=== PATIENT | female | born 2000 | race Caucasian/White ===

== ENCOUNTER 2020-05-24 07:08 | Emergency (ER) | payer BC ==
[~2020-05-24] VITALS: Ht 160 cm; Wt 61.3 kg
[2020-05-24] MEDS ORDERED: PROCHLORPERAZINE 10 MG/2 ML VIAL. IV ONE (07:45)
[2020-05-24] MEDS ORDERED: DEXAMETHASONE SOD PHOS 20 MG/5 ML VIAL. IV ONE (07:45)
[2020-05-24] MEDS ORDERED: ACETAMINOPHEN 500 MG TABLET PO ONE (07:45)
[2020-05-24] MEDS ORDERED: diphenhydrAMINE 50 MG/ML VIAL IVP ONE (07:45)
[2020-05-24] MEDS ORDERED: IV NORMAL SALINE 1000ML BAG 1,000 ML IV ONE (07:45)
--- NOTE | 2020-05-24 08:25 | PHYS DOC ---
Past Medical History Past Medical History: Migraines Past Surgical History: Tonsillectomy, Other Additional Past Surgical Histo: T&A Smoking Status: Light Tobacco Smoker Alcohol Use: None General Adult EDM: Chief Complaint: HEADACHE HPI: HPI: 20-year-old female past medical history significant for migraine headaches, presents to the ED with complaints of sudden onset "digging elbow pain" frontal headache, worse over left anglican, that started yesterday around 10am, now with nausea and nbnb vomiting that started at 3am. Patient follows with Dr. Orellana at [facility] and has been on rizatriptan prn for over a year. Took rizatriptan this am with no relief. No relief with tramadol yesterday. Is on amitriptyline and Emgality daily. States she has had headaches for up to 2 weeks and her headaches have worsened over the past 2 years. Does report this is the worst headache she has ever had. Biological mother at bedside reports her brother/patient's uncle, was recently hospitalized for 2 "atraumatic bleeding strokes," they could not find where the bleeding was coming from. Patient's grandmother has had a AAA repair. Patient denies any hookah smoking, caffeine/cocaine/amphetamine/IVDU use, or recent alcohol use. No history of head trauma. Denies any associated fever, nuchal rigidity, blurry vision, neck pain, weakness/sensory deficits/radiculopathy. No known family history of polycystic kidney disease, Marfan's syndrome, or Annia-Danlos. No medical h/o bleeding problems, anemia or blood transfusions. Patient came home from college on Monday and has been staying at her mom's house. Mother does not have any headache. Review of Systems: Review of Systems: Constitutional: Denies fever or chills. [] Eyes: Denies change in visual acuity, blurry vision or eye discharge HENT: Denies nasal congestion or sore throat. [] Respiratory: Denies cough or shortness of breath. [] Cardiovascular: Denies chest pain or edema. [] GI: Denies abdominal pain, bloody stools or diarrhea. [] : Denies dysuria. [] Musculoskeletal: Denies back pain or joint pain. [] Integument: Denies rash. [] Neurologic: Denies neck stiffness, focal weakness or sensory changes. [] Endocrine: Denies polyuria or polydipsia. [] Lymphatic: Denies swollen glands. [] Psychiatric: Denies depression or anxiety. [] Heart Score: Risk Factors: Risk Factors: DM, Current or recent (<one month) smoker, HTN, HLP, family history of CAD, obesity. Risk Scores: Score 0 - 3: 2.5% MACE over next 6 weeks - Discharge Home Score 4 - 6: 20.3% MACE over next 6 weeks - Admit for Clinical Observation Score 7 - 10: 72.7% MACE over next 6 weeks - Early Invasive Strategies Current Medications: Current Medications Medications (Trade) Dose Ordered Sig/Natalia Start Time Stop Time Status Last Admin Dose Admin Acetaminophen (Tylenol) 1,000 mg 1X ONCE 05/24/20 07:45 05/24/20 07:46 DC Dexamethasone Sodium Phosphate (Decadron) 10 mg 1X ONCE 05/24/20 07:45 05/24/20 07:46 DC Diphenhydramine HCl (Benadryl) 25 mg 1X ONCE 05/24/20 07:45 05/24/20 07:46 DC Prochlorperazine Edisylate (Compazine) 10 mg 1X ONCE 05/24/20 07:45 05/24/20 07:46 DC Sodium Chloride 1,000 ml @ 1,000 mls/hr 1X ONCE 05/24/20 07:45 05/24/20 08:44 Allergies: Allergies: Allergies Coded Allergies Type Severity Reaction Last Updated Verified Penicillins Allergy Unknown 05/24/20 Yes Physical Exam: PE: Constitutional: Well developed, well nourished, no acute distress, non-toxic appearance. [] HENT: Normocephalic, atraumatic, bilateral external ears normal, oropharynx moist, no hemotympanum, solomon red lips Eyes: PERRLA, EOMI, conjunctiva normal, no discharge. [] Neck: Normal range of motion, no tenderness, supple, no stridor. [] Cardiovascular: S1/2 present, regular rhythm Lungs & Thorax: Speaking in full sentences, bilateral equal chest rise, no tachypnea or increased work of breathing Abdomen: soft, no tenderness, active vomiting Skin: Warm, dry, no erythema, no rash. [] Back: No tenderness, no CVA tenderness. [] Extremities: No tenderness, no cyanosis, no clubbing, ROM intact, no edema. [] Neurologic: Alert and oriented X 3, normal motor function, normal sensory function, no focal deficits noted. [] Psychologic: Affect normal, judgement normal, mood normal. [] Current Patient Data: Labs: Laboratory Tests Test 05/24/20 07:26 POC Urine HCG, Qualitative Hcg negative (Negative) Vital Signs: Vital Signs Date Time Temp Pulse Resp B/P (MAP) Pulse Ox O2 Delivery O2 Flow Rate FiO2 05/24/20 07:20 97.8 86 16 114/72 (86) 99 Room Air 97.8 EKG: EKG: [] Radiology/Procedures: Radiology/Procedures: []IMAGING REPORT Signed PATIENT: HARLEEN MAR ACCOUNT: [id number] : 2000 LOCATION: ER AGE: 20 SEX: F EXAM STATUS: REG ER ORD. PHYSICIAN: ERNESTINE DIAL DO REASON: headache PROCEDURE: CT HEAD WO CONTRAST EXAM: CTA HEAD AND NECK W/WO CONTRAST, CT HEAD/BRAIN WO DATE: 05/24/2020 9:43 AM INDICATION: Headache, migraines x 2 weeks. TECHNIQUE: 5 mm axial tomographic images were obtained through the head before contrast. CTA angiogram of the head and neck was obtained after IV bolus administration of 75 cc of Omnipaque 300. The images were sent to workstation and multiplanar reconstructions were obtained. Multiplanar reconstruction images to include MIP and 3-D reconstruction images are submitted. One or more of the following dose reduction techniques were utilized: Automated exposure control (AEC), Adjustment of mA and/or kV according to patient size, Use of iterative reconstruction technique such as ASiR, CT scan done according to ALARA and image gently/image wisely COMPARISON: None. FINDINGS: Noncontrast CT: The brain parenchyma is normal in attenuation. No intra- or extra-axial mass or fluid collection. No hyperdense intracranial hemorrhage. The ventricles are normal in size and configuration without midline shift. There is normal barlow-white matter differentiation. The subarachnoid cisterns are patent. Right maxillary sinus mucus retention cyst. The mastoid air cells are clear. The visualized portions of the orbits are normal. No aggressive osseous lesion or fracture. CTA Head: The visualized distal internal carotid arteries, anterior and middle cerebral arteries are patent and normal caliber. The distal vertebral arteries, basilar artery, and posterior cerebral arteries are patent and normal caliber. No aneurysm or arteriovenous malformation is seen. CTA Neck: Right carotid: The right common carotid artery is patent and normal caliber. The carotid bifurcation is normal. No stenosis of the right internal carotid artery per NASCET criteria. The right external carotid artery is patent. Left carotid: The left common carotid artery is patent and normal caliber. The carotid bifurcation is normal. No stenosis of the left internal carotid artery per NASCET criteria. The left external carotid artery is patent. Right vertebral: The right vertebral artery is patent and normal caliber. Left vertebral: The left vertebral artery is patent and normal caliber. The visualized portions of the aortic arch are normal. The origins of the brachiocephalic and subclavian arteries are normal. No cervical lymphadenopathy. The thyroid gland is normal. The parotid and submandibular glands are normal. The visualized aerodigestive tract is unremarkable. The cervical spine is normal. The visualized portions of the lungs are clear. IMPRESSION: 1. No acute intracranial process by noncontrast head CT. 2. No aneurysm. No intracranial stenosis or occlusion. 3. No stenosis of the cervical carotid or vertebral arteries. PQRS Compliance Statement - Stenosis calculations for CT, MR and conventional angiography are based upon measurement of the distal ICA diameter in accordance with the NASCET methodology. Electronically signed by: Luci Yarbrough MD (05/24/2020 10:01 AM) [id number] DICTATED and SIGNED BY: LUCI YARBROUGH MD DATE: 05/24/20 [id number] 0 Course & Med Decision Making: Course & Med Decision Making Pertinent Labs and Imaging studies reviewed. (See chart for details) On re-evaluation, pts' sxs completely resolved with migraine cocktail and pt requested to be discharged home (long ed staff due to ed volume). Given patient's family history of AAA and hemorrhagic strokes, CTA was performed to evaluate for AVM -mother and pt educated about this. Will prescribe Zofran ODT. Will discharge home with strict ED return precautions were given for neurologic deficits, headache, blurry vision, seizures, fever, or neck stiffness. Encouraged urgent outpatient follow-up with PMD and neurology-Dr. Orellana. Life- threatening processes were considered but are low suspicion at this time, given history, physical exam and ED workup. Pt was educated on all prescription medications and adverse effects. All patient's questions were answered and pt was stable at time of discharge. Life/limb-threatening differential includes but is not limited to, meningitis, encephalitis, intracranial hemorrhage, obstructive hydrocephaly, CVA, carbon monoxide poisoning, cerebral or cavernous venous thrombosis, hypertensive emergency, preeclampsia, giant cell arteritis, glaucoma, carotid or vertebral artery dissection, superior vena cava syndrome, infection, optic neuritis, or space-occupying lesions. I spoken with the patient and her caregivers. I explained the patient's condition, diagnoses and treatment plan based on the information available to me at this time. I have answered the patient and her caregiver's questions and addressed any concerns. The patient and her caregivers have a good understanding of patient's diagnosis, condition and treatment plan as can be expected at this point. Vital signs have been stable. Patient's condition is stable and appropriate for discharge from the emergency department. Patient will pursue further outpatient evaluation with primary care physician or other designated or consulting physician as outlined in the discharge instructions. The patient and/or caregivers are agreeable to this plan of care and follow-up instructions have been explained in detail. The patient and/or caregivers have received these instructions in written form and have expressed an understanding of the discharge instructions. The patient and/or caregivers are aware that any significant change of condition or worsening of symptoms should prompt immediate return to this or the closest emergency department or call to 911. Ismael Disclaimer: Ismael Disclaimer: This electronic medical record was generated, in whole or in part, using a voice recognition dictation system. Departure Departure Impression: Primary Impression: Migraine headache Additional Impression: Nausea & vomiting Disposition: 01 DC HOME SELF CARE/HOMELESS Condition: STABLE Referrals: UNKNOWN PCP NAME (PCP) FOLLOW UP WITH FAMILY MEDICINE: Family Medicine Address: [address], [facility] [address] [place] [address] Patient Instructions: Migraine Headache, Nausea and Vomiting Additional Instructions: FOLLOW UP WITH NEUROLOGY: in 1-2 weeks for re-eval [facility] Address: [address] [facility] [place] [address] EMERGENCY DEPARTMENT GENERAL DISCHARGE INSTRUCTIONS Thank you for coming to [facility] Emergency Department (ED) today and trusting us with you care. We trust that you had a positive experience in our Emergency Department. If you wish to speak to the department management, you may call the Director at [phone]. YOUR FOLLOW UP INSTRUCTIONS ARE FOLLOWS: 1. Do you have a private Doctor? If you do not have a private doctor, please ask for a resource list of physicians or clinics that may be able to assist you with follow up care. 2. The Emergency Physicain has interpreted your x-rays. The X-Ray specialist will also review them. If there is a change in the findings, you will be notified in 48 hours when at all possible. 3. A lab test or culture has been done, your results will be reviewed and you will be notified if you need a change in treatment. ADDITIONAL INSTRUCTIONS AND INFORMATION: 1. Your care today has been supervised by a physician who is specially trained in emergency care. Many problems require more than one evaluation for a complete diagnosis and treatment. We recommend that you schedule your follow up appointment as recommended to ensure complete treatment of you illness or injury. If you are unable to obtain follow up care and continue to have a problem, or if your condition worsens, we recommend that you return to the ED. 2. We are not able to safely determine your condition over the phone nor are we able to give sound medical advice over the phone. For these safety reasons, if you call for medical advice we will ask you to come to the ED for further evaluation. 3. If you have any questions regarding these discharge instructions please call the ED at [phone]. SAFETY INFORMATION: In the interest of safety, wellness, and injury prevention; we encourage you to wear your sealbelt, if you smoke; quite smoking, and we encourage family to use a protective helmet for bicycling and other sporting events that present an increased risk for head injury. IF YOUR SYMPTOMS WORSEN OR NEW SYMPTOMS DEVELOP, OR YOU HAVE CONCERNS ABOUT YOUR CONDITION; OR IF YOUR CONDITION WORSENS WHILE YOU ARE WAITING FOR YOUR FOLLOW UP APPOINTMENT; EITHER CONTACT YOUR PRIMARY CARE DOCTOR, THE PHYSICIAN WHOSE NAME AND NUMBER YOU WERE GIVEN, OR RETURN TO THE ED IMMEDIATELY. Scripts Ondansetron (ONDANSETRON ODT) 4 Mg Tab.rapdis 1 TAB PO PRN Q6-8HRS, #20 TAB Prov: ERNESTINE DIAL DO 05/24/20 ERNESTINE SOW DO May 24, 2020 08:25
[2020-05-24 08:44] LABS: BASO % 1 % (0-3); EOS # 0.1 x10^3/uL (0.0-0.7); EOS % 1 % (0-3); HEMATOCRIT 38.8 % (36.0-47.0); HEMOGLOBIN 13.2 g/dL (12.0-15.5); LYMPH # 1.6 x10^3/uL (1.0-4.8); LYMPH % 21 % (24-48); MEAN CORPUSCULAR HEMOGLOBIN 28 pg (25-35); MEAN CORPUSCULAR HGB CONC 34 g/dL (31-37); MEAN CORPUSCULAR VOLUME 84 fL (79-100); MONO # 0.5 x10^3/uL (0.0-1.1); MONO % 7 % (0-9); NEUT # 5.3 x10^3/uL (1.8-7.7); NEUT % 71 % (31-73); PLATELET COUNT 234 x10^3/uL (140-400); RED BLOOD COUNT 4.64 x10^6/uL (3.50-5.40); RED CELL DISTRIBUTION WIDTH 13.3 % (11.5-14.5); WHITE BLOOD COUNT 7.5 x10^3/uL (4.0-11.0)
[2020-05-24 08:53] LABS: CALCIUM 9.1 mg/dL (8.5-10.1); CREATININE 0.7 mg/dL (0.6-1.0); GFR 106.7; POTASSIUM 3.9 mmol/L (3.5-5.1)
[2020-05-24 08:56] LABS: PROTHROMBIN TIME PATIENT 12.7 SEC (11.7-14.0)
[2020-05-24] MEDS ORDERED: IOHEXOL 300 MG/ML 100ML VIAL. IV ONE (09:00)
[2020-05-24] MEDS ORDERED: CONTRAST GIVEN. MC PRN (09:00)
[2020-05-24 09:04] LABS: ALBUMIN 4.8 g/dL (3.4-5.0); ALBUMIN/GLOBULIN RATIO 1.3 (1.0-1.7); TOTAL BILIRUBIN 0.4 mg/dL (0.2-1.0); TOTAL PROTEIN 8.4 g/dL (6.4-8.2)
[2020-05-24 09:35] LABS: BASE EXCESS COOX -1 mmol/L (-3-3); HCO3 COOX 24 mmol/L (21-28); METHEMOGLOBIN 0.5 % (0.0-1.9); OXYHEMOGLOBIN 96.3 %; PCO2 COOX 42 mmHg (35-46); PO2 COOX 100 mmHg (85-108); SAT O2 COOX 97 % (92-99)
--- NOTE | 2020-05-24 10:03 | RAD ---
EXAM: CTA HEAD AND NECK W/WO CONTRAST, CT HEAD/BRAIN WO DATE: 05/24/2020 9:43 AM INDICATION: Headache, migraines x 2 weeks. TECHNIQUE: 5 mm axial tomographic images were obtained through the head before contrast. CTA angiogra m of the head and neck was obtained after IV bolus administration of 75 cc of Omnipaque 300. The imag es were sent to workstation and multiplanar reconstructions were obtained. Multiplanar reconstructio n images to include MIP and 3-D reconstruction images are submitted. One or more of the following dose reduction techniques were utilized: Automated exposure control (AEC ), Adjustment of mA and/or kV according to patient size, Use of iterative reconstruction technique allison ch as ASiR, CT scan done according to ALARA and image gently/image wisely COMPARISON: None. FINDINGS: Noncontrast CT: The brain parenchyma is normal in attenuation. No intra- or extra-axial mass or fluid collection. No hyperdense intracranial hemorrhage. The ventricles are normal in size and configuration without midli ne shift. There is normal barlow-white matter differentiation. The subarachnoid cisterns are patent. Right maxillary sinus mucus retention cyst. The mastoid air cells are clear. The visualized portions of the orbits are normal. No aggressive osseous lesion or fracture. CTA Head: The visualized distal internal carotid arteries, anterior and middle cerebral arteries are patent and normal caliber. The distal vertebral arteries, basilar artery, and posterior cerebral arteries are p atent and normal caliber. No aneurysm or arteriovenous malformation is seen. CTA Neck: Right carotid: The right common carotid artery is patent and normal caliber. The carotid bifurcation is normal. No stenosis of the right internal carotid artery per NASCET criteria. The right external c arotid artery is patent. Left carotid: The left common carotid artery is patent and normal caliber. The carotid bifurcation is normal. No stenosis of the left internal carotid artery per NASCET criteria. The left external carot id artery is patent. Right vertebral: The right vertebral artery is patent and normal caliber. Left vertebral: The left vertebral artery is patent and normal caliber. The visualized portions of the aortic arch are normal. The origins of the brachiocephalic and subclav jacquelyn arteries are normal. No cervical lymphadenopathy. The thyroid gland is normal. The parotid and submandibular glands are no rmal. The visualized aerodigestive tract is unremarkable. The cervical spine is normal. The visualized portions of the lungs are clear. IMPRESSION: 1. No acute intracranial process by noncontrast head CT. 2. No aneurysm. No intracranial stenosis or occlusion. 3. No stenosis of the cervical carotid or vertebral arteries. PQRS Compliance Statement - Stenosis calculations for CT, MR and conventional angiography are based u yoni measurement of the distal ICA diameter in accordance with the NASCET methodology. Electronically signed by: Sujit Yarbrough MD (05/24/2020 10:01 AM) [id number]
[2020-05-24 11:29] VITALS: BP 103/56
[2020-05-24] MEDS ORDERED: ONDA4TAB12 PO (11:39)
== END 2020-05-24 11:45 | disposition home or self-care (01) ==
LOC: ER 07:08
DX: G43.909 Migraine, unspecified, not intractable, without status migrainosus (principal); R11.2 Nausea with vomiting, unspecified; Z90.89 Acquired absence of other organs; Z98.890 Other specified postprocedural states; Z88.0 Allergy status to penicillin
CPT/HCPCS: 36415; 36600; 70450; 70496; 70498; 80053; 81025; 82805; 85025; 85610; 85730; 96361; 96374; 96375; 99285; J0780; J1100; J1200; J7030; Q9967